=== PATIENT | female | born 1995 | race African-American/Black ===

== ENCOUNTER 2017-07-30 08:00 | Emergency (ER) | payer SELFPAY ==
[~2017-07-30] VITALS: Ht 157.5 cm; Wt 115.7 kg
[2017-07-30 08:10] VITALS: BP 140/79
[2017-07-30] MEDS ORDERED: AMOX1TAB61 PO (08:51)
--- NOTE | 2017-07-30 08:52 | PHYS DOC ---
Past Medical History Past Medical History: No Pertinent History Past Surgical History: No Surgical History Alcohol Use: None Drug Use: Marijuana Adult General Chief Complaint Chief Complaint: Congestion HPI HPI Patient is a 22 year old female with history of hypertension who presents today with nasal congestion for 2 weeks. Patient is also complaining of a frontal headache with pressure. Patient denies this being the worst headache in her life. She states the headache is worse when she bends over. She states she has been taking Tylenol with minimal relief. Review of Systems Review of Systems Constitutional: Denies fever or chills [] Eyes: Denies change in visual acuity, redness, or eye pain [] HENT: Reports nasal congestion, denies sore throat [] Respiratory: Denies cough or shortness of breath [] Cardiovascular: No additional information not addressed in HPI [] GI: Denies abdominal pain, nausea, vomiting, bloody stools or diarrhea [] : Denies dysuria or hematuria [] Musculoskeletal: Denies back pain or joint pain [] Integument: Denies rash or skin lesions [] Neurologic: Denies headache, focal weakness or sensory changes [] All other systems were reviewed and found to be within normal limits, except as documented in this note. Allergies Allergies Allergies Coded Allergies Type Severity Reaction Last Updated Verified No Known Drug Allergies 02/12/14 No Physical Exam Physical Exam Constitutional: Well developed, well nourished, no acute distress, non-toxic appearance. [] HENT: Normocephalic, atraumatic, bilateral external ears normal, oropharynx moist, no oral exudates, bilateral nasal turbinates are boggy and erythematous worse on the right side. Mild frontal sinus pressure. EYE: EOMI, conjunctiva normal, no discharge. [] Neck: Normal range of motion, no tenderness, supple, no stridor. [] Cardiovascular:Heart rate regular rhythm, no murmur [] Lungs & Thorax: Bilateral breath sounds clear to auscultation [] Abdomen: Bowel sounds normal, soft, no tenderness, no masses, no pulsatile masses. [] Skin: Warm, dry, no erythema, no rash. [] Back: No tenderness, no CVA tenderness. [] Extremities: No tenderness, no cyanosis, no clubbing, ROM intact, no edema. [] Neurologic: Alert and oriented X 3, normal motor function, normal sensory function, no focal deficits noted. [] Psychologic: Affect normal, judgement normal, mood normal. [] Current Patient Data Vital Signs Vital Signs Date Time Temp Pulse Resp B/P (MAP) Pulse Ox O2 Delivery O2 Flow Rate FiO2 07/30/17 08:10 99.5 100 18 98 Room Air 99.5 EKG EKG [] Radiology/Procedures Radiology/Procedures [] Course & Med Decision Making Course & Med Decision Making Pertinent Labs and Imaging studies reviewed. (See chart for details) Patient has acute sinusitis. Will be discharged with a give Augmentin. Recommended [id number] decongestant. Instructed to take [id number] anti-inflammatories as well. Follow-up with primary care doctor in 1-2 weeks. Dragon Disclaimer Dragon Disclaimer This electronic medical record was generated, in whole or in part, using a voice recognition dictation system. Departure Departure Impression: Primary Impression: Acute sinusitis Disposition: HOME, SELF-CARE Condition: STABLE Referrals: NO PCP (PCP) follow up with your doctor in 1-2 weeks Patient Instructions: Sinusitis Additional Instructions: You were seen with symptoms consistent of a sinus infection. Take over-the- counter decongestants as needed for congestion. Take ibuprofen as needed for pain or fever. You can also take Tylenol. Complete your prescribed antibiotics. Follow-up with your doctor at [facility] in 1-2 weeks. Scripts Amoxicillin/Potassium Clav (AUGMENTIN 875-125 TABLET) 1 Each Tablet 1 TAB PO BID, #20 TAB Prov: ZOILA SUAREZ APRN 07/30/17 Problem Qualifiers Primary Impression: Acute sinusitis Sinusitis location: frontal Recurrence: non-recurrent Qualified Codes: J01.10 - Acute frontal sinusitis, unspecified ZOILA SUAREZ APRN Jul 30, 2017 08:52
== END 2017-07-30 09:00 | disposition home or self-care (01) ==
LOC: ER 08:00
DX: J01.10 Acute frontal sinusitis, unspecified (principal); I10 Essential (primary) hypertension; F12.10 Cannabis abuse, uncomplicated
CPT/HCPCS: 99283